=== PATIENT | female | born 1955 | race American Indian/Alaskan Native ===

== ENCOUNTER 2021-09-30 17:09 | Inpatient (IN) | payer MEDICARE, MEDICAID ==
[~2021-09-30] VITALS: Ht 160 cm; Wt 109.0 kg
[2021-09-30] MEDS ORDERED: naloxone 0.4 mg/ml inj IV ONE (17:35)
[2021-09-30] MEDS ORDERED: normal saline 1000ML IV soln IV ONE (17:45)
[2021-09-30] MEDS ORDERED: acetaminophen 325mg tablet PO STA (17:45)
[2021-09-30 17:52] LABS: BASOPHILS % (AUTO) 0.1 % (0-1); EOSINOPHILS % (AUTO) 0 % (0-6); HEMATOCRIT 34.8 % (35.0-45.0); HEMOGLOBIN 11.8 g/dl (12.0-16.0); LYMPHOCYTES # (AUTO) 0.5 X10'3 (1.1-4.8); LYMPHOCYTES % (AUTO) 2.6 % (21-51); MEAN CORPUSCULAR VOLUME 88.3 FL (78-98); MEAN PLATELET VOLUME 9.6 FL (7.4-10.4); MONOCYTES % (AUTO) 5.3 % (2-12); NEUTROPHILS # (AUTO) 17.7 X10'3 (1.8-7.7); PLATELET COUNT 204 X10'3 (140-440); RED BLOOD COUNT 3.94 X10'6 (4.20-5.60); RED CELL DISTRIBUTION WIDTH 14.3 % (11.5-14.5); WHITE BLOOD COUNT 19.3 X10'3 (4.5-11.0)
[2021-09-30 18:06] LABS: ALANINE AMINOTRANSFERASE 75 U/L (12-78); ALBUMIN 3.5 G/DL (3.4-5.0); ALBUMIN/GLOBULIN RATIO 0.9 (1.1-1.5); ALKALINE PHOSPHATASE 78 IU/L (46-116); ANION GAP 10 (8-16); ASPARTATE AMINO TRANSFERASE 148 U/L (10-37); BILIRUBIN,TOTAL 1.2 MG/DL (0.1-1.0); BLOOD UREA NITROGEN 27 MG/DL (7-18); BUN/CREATININE RATIO 12.6 (6.6-38.0); CALCIUM 7.7 MG/DL (8.5-10.1); CHLORIDE 98 MMOL/L (99-107); CREATININE 2.14 MG/DL (0.40-0.90); MAGNESIUM 1.5 MG/DL (1.5-2.4); POTASSIUM 5.1 MMOL/L (3.5-5.1); SODIUM 136 MMOL/L (135-145); TOTAL CARBON DIOXIDE 28.3 MMOL/L (24-32); TOTAL PROTEIN 7.4 G/DL (6.4-8.2); eGFR 23 ML/MIN
[2021-09-30 18:10] LABS: GLUCOSE 456 MG/DL (70-104)
[2021-09-30 18:11] LABS: URINE AMPHETAMINE SCREEN NEGATIVE (Neg); URINE BARBITUATE SCREEN NEGATIVE (Neg); URINE BENZODIAZEPINES SCREEN NEGATIVE (Neg); URINE CANNABINOID SCREEN NEGATIVE (Neg); URINE COCAINE SCREEN NEGATIVE (Neg); URINE METHADONE SCREEN NEGATIVE (Neg); URINE OPIATE SCREEN POSITIVE (Neg); URINE PHENCYCLIDINE SCREEN NEGATIVE (Neg)
[2021-09-30 18:15] LABS: ETHANOL < 0.010 GM/DL (0.0-0.010)
[2021-09-30] MEDS ORDERED: CefTRIAXone/D5W-Rocephin 1gm 50 ML IV ONE (18:30)
[2021-09-30 18:35] LABS: CLARITY,URINE CLOUDY (Clear); COLOR,URINE YELLOW (Yellow); GLUCOSE, URINE >=1000 mg/dl (Neg); KETONES,URINE NEGATIVE (Neg); LEUKOCYTE ESTERASE ,URINE NEGATIVE (Neg); NITRITES, URINE NEGATIVE (Neg); OCCULT BLOOD,URINE LARGE (Neg); PROTEIN,URINE 30 mg/dl (Neg); UROBILINOGEN,URINE 0.2 E.U/dL (0.2-1.0)
[2021-09-30 18:37] LABS: OSMOLALITY 307 MOSM/K (280-300)
[2021-09-30 18:38] LABS: UA COLLECTION TYPE STRAIGHT CATH
[2021-09-30 18:40] LABS: FINE GRANULAR CAST 0-3 /LPF (NEGATIVE); SQUAMOUS EPITHELIAL CELL,UR FEW /LPF (FEW)
[2021-09-30 18:41] LABS: AMORPHOUS URATES 1+; BACTERIA,URINE FEW /HPF (Neg); WBC,URINE 0-4 /HPF (0-4)
[2021-09-30 19:52] LABS: ABG BASE EXCESS -6.7 mmol/L (-2.0-2.0); ABG HCO3 21.4 mmol/L (22.0-26.0); ABG OXYGEN SATURATION 93.6 % (94-97); ABG PCO2 (T) 55.4 mmHg (32.0-45.0); ABG PO2 (T) 79.3 mmHg (75.0-100.0); ALLEN'S TEST POSITIVE; FCOHb 0.3 % (0.0-3.9); FMetHb 0.1 % (0.0-1.5); FO2Hb 93.2 % (94-97); PATIENT TEMPERATURE 36.9; TOTAL HEMOGLOBIN 10.8 G/dl (12.0-16.0)
[2021-09-30] MEDS ORDERED: naloxone 2mg/2ml inj IV STA (19:57)
[2021-09-30 20:23] LABS: ACETAMINOPHEN < 2.0 UG/ML (10-30)
[2021-09-30] MEDS ORDERED: morphine 2 MG/ML inj. syringe IV PRN (22:05)
[2021-09-30] MEDS ORDERED: magnesium 2GM in 50ml NS 50 ML IV PRN (22:05)
[2021-09-30] MEDS ORDERED: magnesium Cl slow-release 64mg tablet PO PRN (22:05)
[2021-09-30] MEDS ORDERED: ondansetron/PF 4mg/2ml inj IV PRN (22:05)
[2021-09-30] MEDS ORDERED: potassium CL 10mEq/100ml bag 100 ML IV PRN (22:05)
[2021-09-30] MEDS ORDERED: HYDROcodone/acetaminophen 5mg/325mg tablet PO PRN (22:05)
[2021-09-30] MEDS ORDERED: magnesium 4gm in 100ml NS 100 ML IV PRN (22:05)
[2021-09-30] MEDS ORDERED: acetaminophen 325mg tablet PO PRN ×2 (22:05)
[2021-09-30] MEDS ORDERED: potassium Cl 20 mEq SR tablet PO PRN ×2 (22:05)
[2021-09-30] MEDS ORDERED: dextrose 50%-water 50ml dispensing syringe IV PRN ×2 (22:15)
[2021-09-30] MEDS ORDERED: dextrose ORAL solution 15 GM/59 ML bottle PO PRN ×2 (22:15)
[2021-09-30] MEDS ORDERED: glucagon, human recombinant 1mg kit SUBCUT PRN (22:15)
[2021-09-30] MEDS ORDERED: MESSAGE TO PHARMACY PO ONE (22:15)
[2021-09-30] MEDS ORDERED: vancomycin/NS 1 GM ADD-VANTAGE 250 ML X 1 DOSE IV ONE (22:25)
[2021-09-30] MEDS: normal saline 1000ml 1,000 ML IV SCH (22:33)
[2021-09-30 22:58] LABS: HEMOGLOBIN A1C 10.4 % (4.5-6.2); MAGNESIUM 1.6 MG/DL (1.5-2.4); POTASSIUM 4.7 MMOL/L (3.5-5.1)
[2021-09-30] MEDS: insulin Lispro (HumaLOG) vial - multi-dose SQ SCH (23:03)
[2021-10-01] VITALS (8 sets, daily range): BP systolic 152–202; BP diastolic 74–106
[2021-10-01] MEDS: piperacillin/tazo 3.375gm/50ml 50 ML IV SCH ×3 (01:38→16:35)
[2021-10-01 01:46] LABS: BASOPHILS % (AUTO) 0.1 % (0-1); EOSINOPHILS % (AUTO) 0 % (0-6); HEMATOCRIT 32.5 % (35.0-45.0); HEMOGLOBIN 11.1 g/dl (12.0-16.0); LYMPHOCYTES # (AUTO) 0.8 X10'3 (1.1-4.8); LYMPHOCYTES % (AUTO) 5.2 % (21-51); MEAN CORPUSCULAR HEMOGLOBIN 30.2 PG (27.0-31.0); MEAN CORPUSCULAR HGB CONC 34.2 g/dL (33.0-36.5); MEAN CORPUSCULAR VOLUME 88.4 FL (78-98); MEAN PLATELET VOLUME 9.2 FL (7.4-10.4); MONOCYTES % (AUTO) 6.2 % (2-12); NEUTROPHILS # (AUTO) 13.9 X10'3 (1.8-7.7); NEUTROPHILS % (AUTO) 88.5 % (42-75); PLATELET COUNT 168 X10'3 (140-440); RED BLOOD COUNT 3.68 X10'6 (4.20-5.60); RED CELL DISTRIBUTION WIDTH 14.4 % (11.5-14.5); WHITE BLOOD COUNT 15.7 X10'3 (4.5-11.0)
[2021-10-01 01:59] LABS: ALANINE AMINOTRANSFERASE 78 U/L (12-78); ALBUMIN 3.2 G/DL (3.4-5.0); ALBUMIN/GLOBULIN RATIO 0.9 (1.1-1.5); ALKALINE PHOSPHATASE 70 IU/L (46-116); ANION GAP 8 (8-16); ASPARTATE AMINO TRANSFERASE 176 U/L (10-37); BILIRUBIN,TOTAL 0.8 MG/DL (0.1-1.0); BLOOD UREA NITROGEN 24 MG/DL (7-18); BUN/CREATININE RATIO 15.9 (6.6-38.0); CHLORIDE 107 MMOL/L (99-107); CREATININE 1.51 MG/DL (0.40-0.90); GLUCOSE 317 MG/DL (70-104); POTASSIUM 4.6 MMOL/L (3.5-5.1); SODIUM 140 MMOL/L (135-145); TOTAL CARBON DIOXIDE 25.1 MMOL/L (24-32); TOTAL PROTEIN 6.8 G/DL (6.4-8.2); eGFR 35 ML/MIN
--- NOTE | 2021-10-01 07:01 | NUR ---
patient received in bed awake,call light within reach.
[2021-10-01] MEDS: K and/or MAG REPLACEMENT MC SCH ×2 (08:00→20:00)
[2021-10-01] MEDS: normal saline 1000ml 1,000 ML IV SCH (08:05)
[2021-10-01] MEDS: heparin, porcine 5000 units/ml vial SQ SCH ×2 (08:56→22:08)
--- NOTE | 2021-10-01 09:17 | NUR ---
patient up to bedside for breakfast.
--- NOTE | 2021-10-01 09:18 | NUR ---
changed patient into a hospital gown.call light within reach.bs 234mg/dl.
[2021-10-01] MEDS: insulin Lispro (HumaLOG) vial - multi-dose SQ SCH ×3 (09:48→19:18)
--- NOTE | 2021-10-01 09:59 | NUR ---
patient refused MRI-reports claustrophobia,offered ativan but says it's ineffective.Paged Dr. Tolentino.Call light within reach.
--- NOTE | 2021-10-01 10:03 | NUR ---
Dr. Tolentino called back and aware about pt refusing MRI.
[2021-10-01] MEDS ORDERED: ROSU10TA28 PO (10:26)
[2021-10-01] MEDS ORDERED: DILT-35 PO (10:26)
[2021-10-01] MEDS ORDERED: GABA600T13 PO (10:26)
[2021-10-01] MEDS ORDERED: HYDR-3972 PO (10:26)
[2021-10-01] MEDS ORDERED: FLUO-84 PO (10:26)
[2021-10-01] MEDS ORDERED: PRAM0.129 PO (10:26)
[2021-10-01] MEDS ORDERED: QUET100T34 PO (10:26)
[2021-10-01] MEDS ORDERED: MORP60TA77 PO (10:26)
[2021-10-01] MEDS ORDERED: LISI40TA13 PO (10:26)
[2021-10-01] MEDS ORDERED: SITA50TA PO (10:26)
[2021-10-01] MEDS ORDERED: FENO145T25 PO (10:26)
--- NOTE | 2021-10-01 16:28 | NUR ---
Patient in room [facility] 312. I have received report from KAMILA ESPINOSA, and had the opportunity to ask questions and assume patient care.
[2021-10-01] MEDS: HYDROcodone/acetaminophen 10/325mg tab PO PRN (16:42)
[2021-10-01] MEDS: hydrALAZINE 20mg/ml inj. IV PRN (17:16)
--- NOTE | 2021-10-01 18:36 | NUR ---
Patient in room [facility] 312. I have received report from Sunita TREVIÑO and had the opportunity to ask questions and assume patient care.
--- NOTE | 2021-10-01 18:42 | NUR ---
Problems reprioritized. Patient report given, questions answered & plan of care reviewed with KAMILA YOUNG.
[2021-10-01] MEDS ORDERED: vancomycin/NS 1 GM ADD-VANTAGE 250 ML IV SCH (22:00)
[2021-10-01] MEDS: pramipexole 0.25mg tablet PO SCH (22:06)
[2021-10-01] MEDS: gabapentin 300mg capsule PO SCH (22:07)
[2021-10-01] MEDS: lactobacillus rhamnosus 10,000 MMU CELLS/CAPSULE PO SCH (22:08)
[2021-10-01] MEDS: morphine ER 30mg tablet PO SCH (22:11)
[2021-10-01] MEDS: QUEtiapine 25mg tablet PO SCH (22:36)
[2021-10-01] MEDS ORDERED: vancomycin inj 500 MG in normal saline 100ml IV soln 100 ML IV SCH (23:00)
[2021-10-02] MEDS: insulin Lispro (HumaLOG) vial - multi-dose SQ SCH ×3 (00:19→18:57)
[2021-10-02] MEDS: insulin glargine (Lantus) pen - multi-dose SQ SCH ×2 (00:25→21:02)
[2021-10-02] MEDS: piperacillin/tazo 3.375gm/50ml 50 ML IV SCH ×3 (00:51→17:08)
[2021-10-02 02:00] VITALS: BP 165/73
[2021-10-02] MEDS: normal saline 1000ml 1,000 ML IV SCH ×4 (02:00→17:14)
[2021-10-02] MEDS: hydrALAZINE 20mg/ml inj. IV PRN ×2 (02:50→09:29)
[2021-10-02 06:00] VITALS: BP 165/84
[2021-10-02 06:58] LABS: BASOPHILS % (AUTO) 0.3 % (0-1); EOSINOPHILS % (AUTO) 0.2 % (0-6); HEMATOCRIT 32.3 % (35.0-45.0); HEMOGLOBIN 11.4 g/dl (12.0-16.0); LYMPHOCYTES % (AUTO) 18.5 % (21-51); MEAN CORPUSCULAR HEMOGLOBIN 30.6 PG (27.0-31.0); MEAN CORPUSCULAR HGB CONC 35.4 g/dL (33.0-36.5); MEAN CORPUSCULAR VOLUME 86.6 FL (78-98); MEAN PLATELET VOLUME 9.4 FL (7.4-10.4); MONOCYTES # (AUTO) 0.8 X10'3 (0-0.9); MONOCYTES % (AUTO) 7.5 % (2-12); NEUTROPHILS # (AUTO) 7.8 X10'3 (1.8-7.7); NEUTROPHILS % (AUTO) 73.5 % (42-75); PLATELET COUNT 176 X10'3 (140-440); RED BLOOD COUNT 3.73 X10'6 (4.20-5.60); RED CELL DISTRIBUTION WIDTH 13.8 % (11.5-14.5); WHITE BLOOD COUNT 10.6 X10'3 (4.5-11.0)
[2021-10-02] MEDS: pramipexole 0.25mg tablet PO SCH ×2 (07:18→19:24)
[2021-10-02] MEDS: atorvastatin 20mg tablet PO SCH (07:19)
[2021-10-02] MEDS: fenofibrate 145mg tablet PO SCH (07:20)
[2021-10-02] MEDS: FLUoxetine 20mg capsule PO SCH (07:21)
[2021-10-02] MEDS: lactobacillus rhamnosus 10,000 MMU CELLS/CAPSULE PO SCH ×2 (07:21→19:23)
[2021-10-02] MEDS: morphine ER 30mg tablet PO SCH ×2 (07:21→19:23)
[2021-10-02] MEDS: diltiazem CD 120mg capsule (once-daily) PO SCH (07:21)
[2021-10-02] MEDS: lisinopril 20mg tablet PO SCH (07:22)
[2021-10-02 07:25] LABS: ALANINE AMINOTRANSFERASE 68 U/L (12-78); ALBUMIN 3.1 G/DL (3.4-5.0); ALBUMIN/GLOBULIN RATIO 0.8 (1.1-1.5); ALKALINE PHOSPHATASE 62 IU/L (46-116); ANION GAP 10 (8-16); ASPARTATE AMINO TRANSFERASE 102 U/L (10-37); BILIRUBIN,TOTAL 1.2 MG/DL (0.1-1.0); BLOOD UREA NITROGEN 12 MG/DL (7-18); BUN/CREATININE RATIO 12.9 (6.6-38.0); CALCIUM 8.1 MG/DL (8.5-10.1); CHLORIDE 105 MMOL/L (99-107); CREATININE 0.93 MG/DL (0.40-0.90); GLUCOSE 167 MG/DL (70-104); POTASSIUM 3.6 MMOL/L (3.5-5.1); SODIUM 141 MMOL/L (135-145); TOTAL CARBON DIOXIDE 25.7 MMOL/L (24-32); TOTAL PROTEIN 6.8 G/DL (6.4-8.2); eGFR 61 ML/MIN
[2021-10-02] MEDS: heparin, porcine 5000 units/ml vial SQ SCH ×2 (07:25→19:24)
[2021-10-02] MEDS: K and/or MAG REPLACEMENT MC SCH ×2 (08:00→19:24)
--- NOTE | 2021-10-02 08:54 | NUR ---
Problems reprioritized. Patient report given, questions answered & plan of care reviewed with Ingrid TREVIÑO.
--- NOTE | 2021-10-02 09:50 | NUR ---
Dr. Tolentino bedside. Made aware of BP 184/80 and HR 115. PRN Hydralizine 10mg given 929. Order placed for now dose of metoprolol 25mg PO now.
[2021-10-02 10:00] VITALS: BP 184/80
[2021-10-02] MEDS ORDERED: metoprolol tartrate 25mg tablet PO ONE (10:00)
[2021-10-02] MEDS ORDERED: cloNIDine 0.1 mg tablet PO ONE (11:30)
--- NOTE | 2021-10-02 11:30 | NUR ---
Dr. Tolentino bedside. Order placed for one time clonodine .3 PO for elevated BP 186/91 HR 100.
--- NOTE | 2021-10-02 13:15 | NUR ---
Manual BP 118/70. Patient sat up on edge of bed with physical therapy at 1330 and BP dropped to 85/36 HR 75. Patient lethargic. Dr. Tolentino notified and states to given NS bolus 500ml. Bolus started 1345. Will continue to monitor.
--- NOTE | 2021-10-02 13:31 | NUR ---
Noted pt with T2DM with A1c 10.4%. Attempted visit with pt at bedside however pt unavailable. Will attempt education at another time. Addendum: 10/02/21 at [address] Amended: Links added.
[2021-10-02] MEDS: vancomycin/NS 1 GM ADD-VANTAGE 250 ML IV SCH (14:17)
[2021-10-02 15:00] VITALS: BP 119/54
[2021-10-02 18:00] VITALS: BP 90/62
--- NOTE | 2021-10-02 18:22 | NUR ---
Patient in room [facility] 312. I have received report from EVE TREVIÑO and had the opportunity to ask questions and assume patient care.
[2021-10-02] MEDS ORDERED: cloNIDine 0.1 mg tablet PO PRN (19:05)
[2021-10-02] MEDS: gabapentin 300mg capsule PO SCH (19:23)
[2021-10-02] MEDS: HYDROcodone/acetaminophen 10/325mg tab PO PRN (19:39)
[2021-10-02] MEDS: QUEtiapine 25mg tablet PO SCH (20:18)
[2021-10-02 22:00] VITALS: BP 90/62
[2021-10-03] MEDS: vancomycin/NS 1 GM ADD-VANTAGE 250 ML IV SCH (00:06)
[2021-10-03] MEDS: piperacillin/tazo 3.375gm/50ml 50 ML IV SCH ×2 (01:42→08:04)
[2021-10-03 02:00] VITALS: BP 122/50
--- NOTE | 2021-10-03 06:28 | NUR ---
Patient in room [facility] 312. I have received report from Flaquita TREVIÑO and had the opportunity to ask questions and assume patient care.
--- NOTE | 2021-10-03 06:43 | NUR ---
Problems reprioritized. Patient report given, questions answered & plan of care reviewed with ARSENIO TREVIÑO.
[2021-10-03 07:00] VITALS: BP 189/91
[2021-10-03 07:01] LABS: BASOPHILS % (AUTO) 0.5 % (0-1); EOSINOPHILS # (AUTO) 0.2 X10'3 (0-0.9); EOSINOPHILS % (AUTO) 2.1 % (0-6); HEMATOCRIT 28.8 % (35.0-45.0); HEMOGLOBIN 10.1 g/dl (12.0-16.0); LYMPHOCYTES # (AUTO) 2.3 X10'3 (1.1-4.8); LYMPHOCYTES % (AUTO) 25.7 % (21-51); MEAN CORPUSCULAR HEMOGLOBIN 30.6 PG (27.0-31.0); MEAN CORPUSCULAR HGB CONC 35.2 g/dL (33.0-36.5); MEAN PLATELET VOLUME 9.1 FL (7.4-10.4); MONOCYTES # (AUTO) 0.7 X10'3 (0-0.9); NEUTROPHILS # (AUTO) 5.7 X10'3 (1.8-7.7); NEUTROPHILS % (AUTO) 63.7 % (42-75); PLATELET COUNT 164 X10'3 (140-440); RED BLOOD COUNT 3.31 X10'6 (4.20-5.60); RED CELL DISTRIBUTION WIDTH 13.9 % (11.5-14.5); WHITE BLOOD COUNT 8.9 X10'3 (4.5-11.0)
[2021-10-03 07:14] LABS: ALANINE AMINOTRANSFERASE 58 U/L (12-78); ALBUMIN 2.7 G/DL (3.4-5.0); ALBUMIN/GLOBULIN RATIO 0.8 (1.1-1.5); ALKALINE PHOSPHATASE 50 IU/L (46-116); ANION GAP 10 (8-16); ASPARTATE AMINO TRANSFERASE 74 U/L (10-37); BILIRUBIN,TOTAL 0.9 MG/DL (0.1-1.0); BLOOD UREA NITROGEN 11 MG/DL (7-18); BUN/CREATININE RATIO 12.2 (6.6-38.0); CALCIUM 7.4 MG/DL (8.5-10.1); CHLORIDE 109 MMOL/L (99-107); GLUCOSE 86 MG/DL (70-104); POTASSIUM 3.4 MMOL/L (3.5-5.1); SODIUM 143 MMOL/L (135-145); TOTAL CARBON DIOXIDE 23.6 MMOL/L (24-32); TOTAL PROTEIN 6.1 G/DL (6.4-8.2); eGFR 63 ML/MIN
[2021-10-03] MEDS: K and/or MAG REPLACEMENT MC SCH (08:00)
[2021-10-03] MEDS: FLUoxetine 20mg capsule PO SCH (08:04)
[2021-10-03] MEDS: fenofibrate 145mg tablet PO SCH (08:04)
[2021-10-03] MEDS: lactobacillus rhamnosus 10,000 MMU CELLS/CAPSULE PO SCH (08:04)
[2021-10-03] MEDS: atorvastatin 20mg tablet PO SCH (08:04)
[2021-10-03] MEDS: diltiazem CD 120mg capsule (once-daily) PO SCH (08:04)
[2021-10-03] MEDS: pramipexole 0.25mg tablet PO SCH (08:05)
[2021-10-03] MEDS: heparin, porcine 5000 units/ml vial SQ SCH (08:05)
[2021-10-03] MEDS: lisinopril 20mg tablet PO SCH (08:05)
[2021-10-03] MEDS: morphine ER 30mg tablet PO SCH (08:05)
[2021-10-03] MEDS: insulin Lispro (HumaLOG) vial - multi-dose SQ SCH (08:10)
[2021-10-03] MEDS: normal saline 1000ml 1,000 ML IV SCH (10:05)
[2021-10-03] MEDS ORDERED: AMOX-580 PO (10:26)
[2021-10-03] MEDS ORDERED: CLON0.1T2 PO (10:26)
[2021-10-03 11:00] VITALS: BP 154/77
--- NOTE | 2021-10-03 11:25 | NUR ---
Diabetes consult: Noted pt with T2DM with A1c 10.4%. Provided pt w/ written and verbal DM education w/ RD contact info. Pt receptive of info. Addendum: 10/03/21 at [address] Amended: Links added.
--- NOTE | 2021-10-03 12:25 | NUR ---
Patient was DC to home and picked up by her daughter. PIV was removed with cannula intact. RX were escripted to [facility] in [place]. DC instructions and warning s/s were reviewed with the patient and her daughter and they both verbalized understanding. Patient was alert, oriented and appropriate at time of DC.
--- NOTE | 2021-10-03 17:12 | NUR ---
[facility] called into [facility] [place]
[2021-10-04] MEDS ORDERED: VANCOMYCIN LEVEL IV ONE (00:30)
== END 2021-10-03 12:22 | disposition home or self-care (01) | DRG 871 ==
LOC: ER 17:09 → ED HOLD 22:10 → MED 3N 10-01 16:00
PROVIDERS: ADMIT Internal Medicine; ATTEND Family Medicine
DX: A41.9 Sepsis, unspecified organism (principal); G93.41 Metabolic encephalopathy; J96.92 Respiratory failure, unspecified with hypercapnia; N17.0 Acute kidney failure with tubular necrosis; E11.65 Type 2 diabetes mellitus with hyperglycemia; E78.5 Hyperlipidemia, unspecified; E86.0 Dehydration; F12.90 Cannabis use, unspecified, uncomplicated; I95.9 Hypotension, unspecified; Z20.822 Contact with and (suspected) exposure to COVID-19; R79.89 Other specified abnormal findings of blood chemistry; F32.A Depression, unspecified; G89.4 Chronic pain syndrome; I10 Essential (primary) hypertension; Z79.84 Long term (current) use of oral hypoglycemic drugs; Z79.899 Other long term (current) drug therapy; Z91.030 Bee allergy status
CPT/HCPCS: 36415; 36600; 70450; 71045; 80053; 80305; 80320; 80329; 81001; 82140; 82803; 82948; 83036; 83605; 83735; 83930; 84132; 84145; 84443; 84484; 85018; 85025; 87040; 87635; 93005; 96361; 96365; 96375; 99285; C9803; G0378; J0360; J0696; J1644; J1815; J2270; J2310; J2543; J3370; J7030